=== PATIENT | male | born 1955 | race Caucasian/White ===

== ENCOUNTER → 2021-05-16 | Outpatient (CLI) | payer OTHER ==
[~2021-05-16] MED LIST: LISI-170 PO; OMEP40CA8 PO
[2021-05-16 10:16] LABS: ALANINE AMINOTRANSFERASE 20 U/L (12-78); ALBUMIN 3.8 g/dL (3.4-5.0); ANION GAP 6 mmol/L (5-15); CALCIUM 9.3 mg/dL (8.5-10.1); CHLORIDE 109 mmol/L (98-107)
[2021-05-16 10:19] LABS: ALKALINE PHOSPHATASE 85 U/L (45-117); BILIRUBIN,TOTAL 0.5 mg/dL (0.2-1.0); CREATININE 0.86 mg/dL (0.7-1.3); TOTAL PROTEIN 7.4 g/dL (6.4-8.2)
== END | disposition home or self-care (01) ==
LOC: STAR 09:24
PROVIDERS: ATTEND Orthopaedic Surgery
DX: Z01.818 Encounter for other preprocedural examination (principal); M17.11 Unilateral primary osteoarthritis, right knee; M25.561 Pain in right knee
CPT/HCPCS: 36415; 80053; 87081; 93005

== ENCOUNTER 2021-05-25 05:21 | Day surgery (SDC) | payer OTHER ==
[~2021-05-25] VITALS: Ht 185.4 cm; Wt 105.0 kg
[2021-05-25 06:00] VITALS: BP 172/99
[2021-05-25] MEDS ORDERED: LACTATED RINGERS 1,000 ML IV SCH (06:00)
[2021-05-25] MEDS ORDERED: CHLORHEXIDINE 15 ML UDC PO ONE (06:00)
[2021-05-25] MEDS ORDERED: KETOROLAC 60 MG/2 ML ONE (06:23)
[2021-05-25] MEDS ORDERED: SODIUM CHLORIDE 0.9% 50 ML ONE (06:23)
[2021-05-25] MEDS ORDERED: ROPIvacaine/PF 0.2%, 20 ML ONE (06:23)
[2021-05-25] MEDS ORDERED: VANCOMYCIN 1,000 MG ONE (06:23)
[2021-05-25] MEDS ORDERED: TRANEXAMIC ACID 100 MG/ML, 10ML ONE (06:23)
[2021-05-25] MEDS ORDERED: EPINEPHRINE 1 MG/ML, 1ML ONE (06:24)
[2021-05-25] MEDS ORDERED: MIDAZOLAM 1 MG/ML, 2ML ONE (06:40)
[2021-05-25] MEDS ORDERED: FENTANYL PF 250 MCG/5ML ONE (06:40)
[2021-05-25] MEDS ORDERED: ALBUTEROL SULFATE 2.5 MG/3 ML NPPB PRN (07:30)
[2021-05-25] MEDS ORDERED: DIAZEPAM 5 MG/ML, 2ML IV PRN ×2 (07:30)
[2021-05-25] MEDS ORDERED: hydrALAzine 20 MG/ML, 1ML IV PRN (07:30)
[2021-05-25] MEDS ORDERED: HYDROmorphone 1 MG/ML, 1ML INJ IV PRN (07:30)
[2021-05-25] MEDS ORDERED: PROMETHAZINE 25 MG/ML, 1ML IV PRN (07:30)
[2021-05-25] MEDS ORDERED: LABETALOL 5MG/ML, 20ML IV PRN (07:30)
[2021-05-25] MEDS ORDERED: METOCLOPRAMIDE 5 MG/ML, 2ML IV PRN (07:30)
[2021-05-25] MEDS ORDERED: OXYcodone 5 MG/5 ML ORAL.SOL UDC PO PRN ×2 (07:30→08:30)
[2021-05-25] MEDS ORDERED: ONDANSETRON 2MG/ML, 2ML IVPush PRN (07:30)
[2021-05-25] MEDS ORDERED: KETOROLAC 30 MG/1 ML IV PRN (07:30)
[2021-05-25] MEDS ORDERED: MEPERIDINE/PF 25MG/0.5ML IVPush PRN (07:30)
[2021-05-25] MEDS ORDERED: ONDANSETRON 4 MG TABLET PO PRN (08:30)
[2021-05-25] MEDS ORDERED: KETOROLAC 30 MG/1 ML IV SCH (08:30)
[2021-05-25] MEDS ORDERED: OXYcodone IR 5MG TABLET PO PRN (08:30)
[2021-05-25] MEDS ORDERED: DIPHENHYDRAMINE 50 MG CAPSULE PO PRN (08:30)
[2021-05-25] MEDS ORDERED: TRANEXAMIC ACID 1,000 MG in SODIUM CHLORIDE 0.9% 100 ML IVPB ONE (08:30)
[2021-05-25] MEDS ORDERED: PROMETHAZINE 25 MG/ML, 1ML IM PRN (08:30)
[2021-05-25] MEDS ORDERED: DIAZEPAM 5 MG TABLET PO PRN (08:30)
[2021-05-25] MEDS ORDERED: HYDROmorphone 1 MG/ML, 1ML INJ IVPush PRN (08:30)
[2021-05-25] MEDS ORDERED: FENTANYL PF 100 MCG/2ML ONE (08:37)
[2021-05-25] MEDS: FENTANYL PF 100 MCG/2ML IV PRN ×2 (08:40→08:54)
[2021-05-25] MEDS ORDERED: MEPERIDINE/PF 25MG/ML,1ML ONE (08:49)
[2021-05-25] MEDS ORDERED: OXYcodone 5 MG/5 ML ORAL.SOL UDC ONE (08:59)
[2021-05-25] MEDS ORDERED: LISINOPRIL 20 MG TABLET PO SCH (09:00)
[2021-05-25] MEDS ORDERED: DOCUSATE 100 MG CAPSULE PO SCH (09:00)
[2021-05-25] MEDS ORDERED: CEFAZOLIN 1,000 MG ONE (16:04)
[2021-05-25] MEDS ORDERED: SUCCINYLCHOLINE 20 MG/ML, 10ML ONE (16:04)
[2021-05-25] MEDS ORDERED: ROCURONIUM 10MG/ML,5ML ONE (16:04)
[2021-05-25] MEDS ORDERED: PROPOFOL 10 MG/ML, 20ML ONE (16:04)
[2021-05-25] MEDS ORDERED: DEXAMETHASONE 4 MG/ML, 1ML ONE (16:04)
[2021-05-25] MEDS ORDERED: ONDANSETRON 2MG/ML, 2ML ONE (16:04)
[2021-05-25] MEDS ORDERED: CEFAZOLIN PMX 1GM/50ML 50 ML IVPB SCH (21:14)
[2021-05-26] MEDS ORDERED: ASPIRIN 81 MG TABLET EC PO SCH ×2 (06:00→18:00)
[2021-05-26] MEDS ORDERED: OMEPRAZOLE 20 MG CAPSULE.DR PO SCH (06:30)
== END 2021-05-25 13:05 | disposition home or self-care (01) ==
LOC: OUT 05:21 → UNDOADMOB 08:24 → ORIP 08:24
PROVIDERS: ATTEND Orthopaedic Surgery
DX: M17.11 Unilateral primary osteoarthritis, right knee (principal); M21.061 Valgus deformity, not elsewhere classified, right knee; M25.761 Osteophyte, right knee; Z79.899 Other long term (current) drug therapy
CPT/HCPCS: 27447; 64447; 73560; 97110; 97161; C1713; C1776; J0171; J0330; J0690; J1100; J1885; J2175; J2250; J2405; J2704; J2795; J3010; J7120; J3370